=== PATIENT | female | born 1985 | race Hispanic/Latino ===

== ENCOUNTER 2022-04-12 06:06 | Day surgery (SDC) | payer OTHER ==
[2022-04-10 11:28] LABS: Basophils % (Auto) 0.6 % (0.0-1.8); Eosinophils # (Auto) 0.1 K/mm3 (0.0-0.4); Hematocrit 29.3 % (30.3-42.9); Hemoglobin 8.9 gm/dl (10.1-14.3); Lymphocytes # (Auto) 2.2 K/mm3 (1.2-5.4); Lymphocytes % (Auto) 26.7 % (13.4-35.0); Mean Corpuscular HGB Conc 30 % (30-34); Monocytes # (Auto) 0.5 K/mm3 (0.0-0.8); Monocytes % (Auto) 5.9 % (0.0-7.3); Platelet Count 446 K/mm3 (140-440); Red Blood Count 4.21 M/mm3 (3.65-5.03)
[2022-04-10 11:31] LABS: Mean Corpuscular Volume 70 fl (79-97); Red Cell Distribution Width 23.5 % (13.2-15.2)
[2022-04-10 11:43] LABS: Blood Urea Nitrogen 10 mg/dL (7-17); Hemolysis Index 6
[2022-04-10 11:47] LABS: BUN/Creatinine Ratio 17
--- NOTE | 2022-04-11 13:42 | History and Physical Report ---
History of Present Illness Date of examination: 04/10/22 Date of admission: 04/12/2022 Chief complaint: vaginal bleeding History of present illness: CC: no complaints. History of Present Illness: Pt presents for Pre-Op. No c/o. ..................................... ................................Kimberlee Singh April 10, 2022 9:37 AM mask,Patient denies fever, cough, shortness of breath and exposure to COVID-19. Pt here for pre op for myosure with hysteroscopy with menorrhagia and endometrial mass possible uterine fibroid. All risk/benefits/alternatives were d/w pt and questions were addressed and answered. Consents signed and placed on the chart. Pt given ample time to ask questions. Vital Signs: Patient Profile: 37 Years Old Female Height: 68 inches (172.72 cm) Weight: 226 pounds BMI: 34.36 Temp: 97.7 degrees F BP sittin / 74 (left arm) MANAGER MEDIA RELATIONS History Uterine Surgery (not C/S): negative Operations: intestinal surgery 2000 Hospitalizations: negative Anesthesia Complications: negative Abnormal PAP: negative Uterine Anomaly: negative SHASHI Exposure: negative Infertility: negative Infection History HIV Risk Eval: no Hep B Immunized: no TB exposure: no Personal hx. of genital herpes: no Partner hx. of genital herpes: no Active Medications (reviewed today): Sprintec (28) 0.25-35 mg-mcg tablet (norgestimate-ethinyl estradiol) Take 1 tablet by mouth once a day Dispense 3 packs with 4 refills ferrous sulfate 325 mg (65 mg iron) tablet (ferrous sulfate) Take 1 tablet by mouth once a day ibuprofen 800 mg tablet (ibuprofen) Take 1 tablet by mouth every six hours Current Allergies (reviewed today): No known allergies Past Medical History: Reviewed history from 03/23/2021 and no changes required: Negative Past Medical History Past Surgical History: Reviewed history from 03/23/2021 and no changes required: intestinal surgery 2000 Risk Factors: Smoked Tobacco Use: Never smoker Smokeless Tobacco Use: Never HIV High Risk Behavior: no Exercise: no Seatbelt Use: 100 % Past History Past Medical History: other (anemia) Past Surgical History: no surgical history MANAGER MEDIA RELATIONS History: abnormal PAP smear Medications and Allergies Allergies Allergy/AdvReac Type Severity Reaction Status Date / Time No Known Allergies Allergy Unverified 04/03/22 20:55 Home Medications Medication Instructions Recorded Confirmed Last Taken Type Ferrous Sulfate [Feosol] 325 mg PO QDAY 04/03/22 04/03/22 Unknown History Norgestimate-Ethinyl Estradiol 1 each PO DAILY 04/03/22 04/03/22 Unknown History [Bxl-Zs-Uulpmnyo Tablet] Active Meds: Active Medications Acetaminophen (Acetaminophen 500 Mg Tab) 1,000 mg PO PREOP YUE Stop: 04/12/22 23:59 Celecoxib (Celecoxib 200 Mg Cap) 200 mg PO PREOP NR Stop: 04/12/22 23:59 Lactated Ringer's (Lactated Ringers) 1,000 mls @ 100 mls/hr IV DIRECT YUE Stop: 04/12/22 23:59 Midazolam HCl (Midazolam 2 Mg/2 Ml Inj) 2 mg IV PREOP NR Stop: 04/12/22 23:59 Scopolamine (Scopolamine Transdermal Patch 72 Hr) 1 each TD PREOP NR Stop: 04/12/22 23:59 Review of Systems All systems: negative - Vital Signs Vital signs: Vital Signs Temp Pulse Resp BP Pulse Ox 98.1 F 76 20 134/66 98 04/10/22 11:00 04/10/22 11:00 04/10/22 11:00 04/10/22 11:00 04/10/22 11:00 Temp Pulse Resp BP Pulse Ox 98.1 F 76 20 134/66 98 04/10/22 11:00 04/10/22 11:00 04/10/22 11:00 04/10/22 11:00 04/10/22 11:00 - Physical Exam Cardiovascular: Normal S1, Normal S2 Lungs: Positive: Clear to auscultation, Normal air movement Abdomen: Positive: normal appearance, soft. Negative: distention, tenderness, guarding Genitourinary (Female): Positive: other (deferred) Results Result Diagrams: 04/10/22 06:00 04/10/22 06:00 All other labs normal. Assessment and Plan - Patient Problems (1) Anemia Status: Acute Qualifiers: Iron deficiency anemia type: chronic blood loss (2) Endometrial mass Status: Acute Plan to address problem: -to OR for above scheduled procedure -consents signed and placed on the chart -all questions addressed and answered.
[~2022-04-12 06:06] MED LIST: ACETAMINOPHEN 500 MG TAB PO SCH; CELECOXIB 200 MG CAP PO NR; LACTATED RINGERS 1,000 ML IV SCH; MIDAZOLAM 2 MG/2 ML INJ IV NR; SCOPOLAMINE TRANSDERMAL PATCH 72 HR TD NR; ceFAZolin/Water 2 GM/20 ML 2 GM/20 ML SYRINGE IV NR
[2022-04-12] MEDS ORDERED: BACTERIOSTATIC SODIUM CHLORIDE 0.9% 30 ML VIAL INFILTRATI ONE (06:36)
[2022-04-12] MEDS ORDERED: fentaNYL 100 MCG/2 ML INJ ONE (07:08)
[2022-04-12] MEDS ORDERED: propofoL 200 MG/20 ML VIAL IV ONE (07:08)
[2022-04-12] MEDS ORDERED: LIDOCAINE-MPF (0.5%) 5 MG/1 ML VIAL 50 ML INFILTRATI ONE (07:08)
--- NOTE | 2022-04-12 07:26 | Anesthesia Day of Surgery ---
Anesthesia Day of Surgery - Day of Surgery Patient Examined: Yes Patient H&P Reviewed: Yes Patient is NPO: Yes
--- NOTE | 2022-04-12 07:27 | Anesthesia Consultation ---
Anesthesia Consult and Med Hx Date of service: 04/12/22 - Airway Anesthetic Teeth Evaluation: Good ROM Head & Neck: Adequate Mental/Hyoid Distance: Adequate Mallampati Class: Class II Intubation Access Assessment: Good - Pulmonary Exam CTA: Yes - Cardiac Exam Cardiac Exam: RRR - Pre-Operative Health Status ASA Pre-Surgery Classification: ASA2 Proposed Anesthetic Plan: General - Central Nervous System Hx Psychiatric Problems: No - Hematic Hx Anemia: Yes - Other Systems Hx Cancer: No
[2022-04-12] MEDS ORDERED: KETOROLAC 30 MG/1 ML INJ ONE (07:30)
[2022-04-12] MEDS ORDERED: ONDANSETRON 4 MG/2 ML INJ ONE (07:30)
[2022-04-12] MEDS ORDERED: dexAMETHasone 20 MG/5 ML VIAL ONE (07:30)
[2022-04-12] MEDS ORDERED: HYDROmorphone 0.5 MG/0.5 ML INJ IV PRN (07:32)
[2022-04-12] MEDS ORDERED: ONDANSETRON 4 MG/2 ML INJ IV PRN (07:32)
[2022-04-12] MEDS ORDERED: oxyCODONE /ACETAMINOPHEN 5-325MG TAB PO PRN (07:32)
--- NOTE | 2022-04-12 09:31 | Short Stay Summary ---
Short Stay Documentation Date of service: 04/12/22 - History H&P: dictated - Allergies and Medications Current Medications: Allergies No Known Allergies Allergy (Unverified 04/03/22 20:55) Home Medications Medication Instructions Recorded Confirmed Last Taken Type Ferrous Sulfate [Feosol] 325 mg PO QDAY 04/03/22 04/03/22 04/11/22 History Norgestimate-Ethinyl Estradiol 1 each PO DAILY 04/03/22 04/03/22 04/11/22 History [Yur-Iq-Zipeqhoe Tablet] Active Medications Acetaminophen (Acetaminophen 500 Mg Tab) 1,000 mg PO PREOP YUE Stop: 04/12/22 23:59 Last Admin: 04/12/22 06:56 Dose: 1,000 mg Celecoxib (Celecoxib 200 Mg Cap) 200 mg PO PREOP NR Stop: 04/12/22 23:59 Last Admin: 04/12/22 06:56 Dose: 200 mg Hydromorphone HCl (Hydromorphone 0.5 Mg/0.5 Ml Inj) 0.5 mg IV Q10MIN PRN PRN Reason: Pain , Severe (7-10) Stop: 04/12/22 20:00 Lactated Ringer's (Lactated Ringers) 1,000 mls @ 100 mls/hr IV DIRECT YUE Stop: 04/12/22 23:59 Last Admin: 04/12/22 07:15 Dose: 100 mls/hr Cefazolin Sodium (Ancef/Sterile Water 2 Gm/20 Ml) 2 gm in 20 mls @ 80 mls/hr IV PREOP NR; Protocol Stop: 04/13/22 06:00 Midazolam HCl (Midazolam 2 Mg/2 Ml Inj) 2 mg IV PREOP NR Stop: 04/12/22 23:59 Last Admin: 04/12/22 07:32 Dose: 2 mg Ondansetron HCl (Ondansetron 4 Mg/2 Ml Inj) 4 mg IV ONCE PRN PRN Reason: Nausea And Vomiting Stop: 04/12/22 20:00 Oxycodone/Acetaminophen (Oxycodone /Acetaminophen 5-325mg Tab) 1 tab PO ONCE PRN PRN Reason: Pain, Moderate (4-6) Stop: 04/12/22 20:00 Scopolamine (Scopolamine Transdermal Patch 72 Hr) 1 each TD PREOP NR Stop: 04/12/22 23:59 Last Admin: 04/12/22 06:58 Dose: 1 each - Brief post op/procedure progress note Date of procedure: 04/12/22 Pre-op diagnosis: Menorrhagia; endometrial mass Post-op diagnosis: same Procedure: myosure hysteroscopy Anesthesia: GETA Findings: See operative report Surgeon: JONELLE ARCHULETA Estimated blood loss: other (200 to 250 mL) Pathology: none (Uterine mass contents) Specimen disposition: to lab Condition: stable - Hospital course Hospital course: Patient was admitted for above-stated procedure. Procedure was not complicated however it was noted that the entire uterine mass cannot be removed due to reaching set fluid deficit of 1 L. Patient did have recovery in the PACU. Due to patient's anemia H&H was repeated in the PACU as well. If H&H stable and all vital signs stable and patient has minimal bleeding and she has met discharge criteria for the PACU, she will be discharged with follow-up in office in 1 week. However if hemoglobin is less than 7 we will monitor patient overnight for any signs and symptoms of anemia and consider transfusion. - Disposition Condition at discharge: Good Disposition: 01 HOME / SELF CARE / HOMELESS - Discharge Diagnoses (1) Anemia Status: Acute Qualifiers: Iron deficiency anemia type: chronic blood loss (2) Endometrial mass Status: Acute Short Stay Discharge Plan Activity: no restrictions Weight Bearing Status: Weight Bear as Tolerated Diet: regular Follow up with: PRIMARY CARE, [Primary Care Provider] - 7 Days Prescriptions: Ibuprofen [Motrin 800 MG tab] 800 mg PO Q8HR PRN #30 tablet PRN Reason: Pain, Moderate (4-6) oxyCODONE /ACETAMINOPHEN [Percocet 5/325] 1 tab PO Q4HR #10 tab
--- NOTE | 2022-04-12 09:31 | Operative Report ---
Operative Report Operative Report: Date of procedure: 04/12/2022 Pre-operative diagnosis: Menorrhagia Endometrial mass Post-operative diagnosis: Same plus endometrial fibroid Procedure name(s): 1. Hysteroscopy 2. MyoSure Surgeon: Sulma Charles M.D. Real Estate Photographer: ANDREW Anesthesia: General endotracheal anesthesia EBL: 200 mL noted after completion of the procedure. Urine output: 100 mL of clear urine out via straight catheterization prior to the onset of the procedure Fluids: 1 L; fluid deficit was 1 L Findings: What appeared to be an approximately 3-1/2 to 4 cm fibroid inside the uterine cavity near the internal cervical os. Normal uterine ostia on the right side the ostia on the left side cannot be visualized. Indications: Patient with history of breakthrough bleeding in increase menstrual. Flow while taking oral contraceptives. Patient was noted to have endometrial mass. Patient was brought to the operating room for hysteroscopic removal of the mass via MyoSure. All risk benefits and alternatives were discussed with the patient. Procedure: Patient was taken to the operating room where she was placed under general endotracheal anesthesia she was then prepped and draped in normal sterile fashion in dorsal lithotomy position with legs in Kb stirrups. Straight catheterization of the bladder was performed at this time. Sterile speculum was placed inside of the vagina to visualize the entire cervix. The anterior lip of the cervix was grasped with a single-tooth tenaculum and the uterus was sounded to 9 cm. The cervix was then dilated in order to allow passage of the hysteroscope. Hysteroscopy yielded the above-stated findings. Endometrial mass was noted.. the Myosure device was then used to suction and remove as much of the mass as possible. Once the fluid deficit had reach 1 L the procedure was abandoned for the safety of the patient. Both ostia were noted on exam but limited by pt menstruation. At the end of the procedure, three fourths of the mass had been removed with a small portion of the mass still remaining adherent to the uterine wall. Minimal bleeding was noted. There was no sign of uterine perforation.. All instruments were removed from the vagina and the cervix. Due to patient's cervix still being dilated she was noted to have some brisk bleeding. This resolved with closing of the cervix. Patient was noted to have minimal bleeding once in recovery. Patient tolerated the procedure well. All counts were correct.
[2022-04-12] MEDS ORDERED: SODIUM CHLORIDE 0.9% IRRIG SOLN 3000 ML IR ONE (09:39)
[2022-04-12 09:52] LABS: Hematocrit 31.7 % (30.3-42.9); Hemoglobin 9.8 gm/dl (10.1-14.3)
--- NOTE | 2022-04-12 11:16 | Post Anesthesia Evaluation ---
- Post Anesthesia Evaluation Patient Participated: Yes Airway Patent: Yes Stable Respiratory Function: Yes Nausea/Vomiting: No Temp > 96.8F: Yes Pain Manageable: Yes Adequeate Hydration: Yes Anesthesia Complications: No
[2022-04-12 15:06] VITALS: BP 117/59
== END 2022-04-12 12:19 | disposition home or self-care (01) ==
LOC: OR 06:06
PROVIDERS: ATTEND Obstetrics & Gynecology
DX: N92.0 Excessive and frequent menstruation with regular cycle (principal); N85.00 Endometrial hyperplasia, unspecified; D64.9 Anemia, unspecified; G43.909 Migraine, unspecified, not intractable, without status migrainosus; N94.89 Other specified conditions associated with female genital organs and menstrual cycle; Z87.442 Personal history of urinary calculi; Z79.899 Other long term (current) drug therapy; Z98.890 Other specified postprocedural states; Z20.822 Contact with and (suspected) exposure to COVID-19
CPT/HCPCS: 36415; 58558; 80048; 84703; 85014; 85018; 85025; 88305; C1782; J0690; J1100; J1885; J2250; J2405; J2704; J3010; J3490; J7120; U0003